=== PATIENT | female | born 1950 | race Caucasian/White ===

== ENCOUNTER 2020-04-03 21:14 | Emergency (ER) | payer MEDICARE, MEDICAID ==
[~2020-04-03] VITALS: Ht 162.6 cm; Wt 77.1 kg
[2020-04-03 21:35] VITALS: BP_SYST 163
--- NOTE | 2020-04-03 21:40 | NUR ---
Patient triaged and placed in waiting room. VSS and patient appears in no acute distress at this time. Accompanied by family, awaiting available bed, and MD notified of need for MSE.
--- NOTE | 2020-04-03 22:00 | NUR ---
Pt C/O abdominal pain, nasea and vomiting x 3 hours. Pt reports eating pastrami sandwich prior to the start of symptoms. Pt states pain is 3/10 generalized abdominal pain non radiating. Pt remains nauseous. Denies any CP, SOB, or any other symptoms at this time. Will continue to monitor.
--- NOTE | 2020-04-03 22:50 | NUR ---
Patient to ER bed 4 to gown for evaluation. Side rails up.
--- NOTE | 2020-04-03 22:50 | NUR ---
ER at bedside examining patient.
[2020-04-03] MEDS ORDERED: NACL 0.9% 1,000 ML IV ONE (23:00)
[2020-04-03 23:30] LABS: BILIRUBIN,URINE NEGATIVE (NEGATIVE); BLOOD, URINE NEGATIVE (NEGATIVE); CLARITY/URINE CLEAR (CLEAR); COLOR,URINE YELLOW (YELLOW); GLUCOSE,URINE NEGATIVE (NEGATIVE); KETONES,URINE TRACE (NEGATIVE); LEUKOCYTE ESTERASE ,URINE TRACE (NEGATIVE); NITRITE, URINE NEGATIVE (NEGATIVE); PROTEIN URINE NEGATIVE (NEGATIVE); UROBILINOGEN,URINE 0.2 (0.2-1.0)
--- NOTE | 2020-04-03 23:30 | NUR ---
Pt resting in ED bed. Awake, no distress noted.
[2020-04-03 23:42] LABS: BACTERIA,URINE FEW /HPF (None Seen); RBC,URINE 0-3 /HPF (0-3)
[2020-04-03 23:46] LABS: BASOPHILS # (AUTO) 0.1 K/uL (0.0-0.2); BASOPHILS % (AUTO) 0.6 % (0.0-2.0); EOSINOPHILS # (AUTO) 0.1 K/uL (0.0-0.4); EOSINOPHILS % (AUTO) 0.7 % (0.0-4.0); HEMATOCRIT 42.7 % (36-48); HEMOGLOBIN 14.6 g/dL (12.0-16.0); LYMPHOCYTES % (AUTO) 8.2 % (20.5-51.5); MEAN CORPUSCULAR HEMOGLOBIN 33 pg (27-31); MEAN CORPUSCULAR HGB CONC 34 % (32-36); MEAN CORPUSCULAR VOLUME 95 fL (79.0-98.0); MONOCYTES # (AUTO) 0.8 K/uL (0.0-1.0); MONOCYTES % (AUTO) 6.1 % (1.7-9.3); NEUTROPHILS # (AUTO) 10.6 K/uL (1.8-7.7); NEUTROPHILS % (AUTO) 84.4 % (40.0-70.0); PLATELET COUNT (AUTO) 230 K/uL (130-430); RED BLOOD CELL COUNT(AUTO) 4.48 MIL/uL (4.2-6.2); RED CELL DISTRIBUTION WIDTH 13.4 % (9.0-15.0); WHITE BLOOD COUNT (AUTO) 12.6 K/uL (4.8-10.8)
[2020-04-03 23:57] LABS: CREATININE 0.96 mg/dL (0.55-1.30); POTASSIUM 3.6 mmol/L (3.5-5.1)
[2020-04-04 00:02] LABS: ALBUMIN 3.9 g/dL (3.4-4.8); TOTAL BILIRUBIN 0.4 mg/dL (0.0-1.0)
[2020-04-04] MEDS ORDERED: ONDANSETRON HCL 4 MG/2 ML VIAL IVP ONE (00:30)
[2020-04-04 00:51] VITALS: BP_SYST 163
--- NOTE | 2020-04-04 00:51 | NUR ---
Patient given written and verbal discharge instructions and verbalizes understanding. ER MD discussed with patient the results and treatment provided. Patient in stable condition. ID arm band removed. IV catheter removed intact and dressing applied, no active bleeding. Rx of Zofran given. Patient educated on pain management and to follow up with PMD. Pain Scale 0/10. Opportunity for questions provided and answered. Medication side effect fact sheet provided.
== END 2020-04-04 00:51 | disposition home or self-care (01) ==
LOC: SED 21:14
DX: R11.2 Nausea with vomiting, unspecified (principal); R19.7 Diarrhea, unspecified; I10 Essential (primary) hypertension
CPT/HCPCS: 36415; 80053; 81000; 85025; 87086; 96361; 96374; 99283; J2405; J7030